=== PATIENT | male | born 1985 | race African-American/Black ===

== ENCOUNTER 2017-09-04 14:51 | Inpatient (IN) | payer MEDICAID ==
[~2017-09-04] VITALS: Ht 177.8 cm; Wt 66.2 kg
[2017-09-04] MEDS ORDERED: QUET100T PO (15:04)
[2017-09-04 15:34] LABS: EOSINOPHILS % (AUTO) 0.7 % (1.0-6.0); HEMATOCRIT 42.5 % (41-53); HEMOGLOBIN 14.6 g/dL (13.5-17.5); LYMPHOCYTES # (AUTO) 1.3 K/uL (1.0-4.8); LYMPHOCYTES % (AUTO) 25.4 % (22.0-44.0); MEAN CORPUSCULAR HEMOGLOBIN 29.9 pg (26.0-34.0); MEAN CORPUSCULAR HGB CONC 34.4 G/dL (31.0-37.0); MEAN CORPUSCULAR VOLUME 87 fL (80-100); MONOCYTES # (AUTO) 0.3 K/uL (0.1-1.0); MONOCYTES % (AUTO) 6.9 % (2.0-9.0); NEUTROPHILS # (AUTO) 3.3 K/uL (1.8-7.7); PLATELET COUNT (AUTO) 178 K/uL (150-450); RED BLOOD CELL COUNT(AUTO) 4.89 MIL/uL (4.50-5.90); RED CELL DISTRIBUTION WIDTH 12.6 % (11.5-14.5)
[2017-09-04 15:45] LABS: ANION GAP 13 mmol/L (8-16); CALCIUM, TOTAL 9.2 mg/dL (8.8-10.5); CARBON DIOXIDE 26 mmol/L (22-29); CHLORIDE 97 mmol/L (98-107); GLOMERULAR FILTR. RATE CALC > 60 mL/min (>60); POTASSIUM 3.7 mmol/L (3.5-5.1); SODIUM SERUM 136 mmol/L (136-145); UREA NITROGEN, BLOOD 18 mg/dL (7-18)
[2017-09-04 15:51] LABS: ALANINE AMINOTRANSFERASE 44 U/L (12-78); ALBUMIN 4.9 g/dL (3.4-5.0); ASPARTATE AMINOTRANSFERASE 71 U/L (15-37); BILIRUBIN,TOTAL 1.4 mg/dL (0.1-1.0); TOTAL PROTEIN, SERUM 8.3 g/dL (6.4-8.2)
[2017-09-04] MEDS ORDERED: LORazepam 2 MG/ML VIAL ONE (16:21)
[2017-09-04] MEDS ORDERED: HALOPERIDOL LACTATE 5 MG/ML VIAL ONE (16:22)
[2017-09-04] MEDS ORDERED: DiphenhydrAMINE HCL 50 MG/ML VIAL ONE (16:22)
[2017-09-04] MEDS ORDERED: HALOPERIDOL LACTATE 5 MG/ML VIAL IM ONE (16:30)
[2017-09-04] MEDS ORDERED: LORazepam 2 MG/ML VIAL IM ONE (16:30)
[2017-09-04] MEDS ORDERED: DiphenhydrAMINE HCL 50 MG/ML VIAL IM ONE (16:30)
[2017-09-04] MEDS ORDERED: INFLUENZA VIRUS VACCINE QVS 2017-18 (3YR+)/PF 60 MCG/0.5 ML SYRINGE IM ONE (20:15)
[2017-09-05] MEDS ORDERED: BENZOCAINE/MENTHOL LOZENGE MM PRN (08:00)
[2017-09-05] MEDS ORDERED: BACITRACIN 28.4 GM OINTMENT TP PRN (08:00)
[2017-09-05] MEDS ORDERED: PETROLATUM,WHITE 71 GM JELLY TP PRN (08:00)
[2017-09-05] MEDS ORDERED: MAGNESIUM HYDROXIDE SUSPENSION 30 ML UDCUP PO PRN (08:00)
[2017-09-05] MEDS ORDERED: MAG HYDROX/AL HYDROX/SIMETH ES 30 ML SUSPENSION UDCUP PO PRN (08:00)
[2017-09-05] MEDS ORDERED: IBUPROFEN 600 MG TABLET PO PRN (08:00)
[2017-09-05] MEDS ORDERED: CloNIDine HCL 0.1 MG TABLET PO PRN (08:00)
[2017-09-05] MEDS ORDERED: LOPERAMIDE HCL 2 MG CAPSULE PO PRN (08:00)
[2017-09-05] MEDS ORDERED: ONDANSETRON HCL 4 MG TABLET PO PRN (08:00)
[2017-09-05] MEDS ORDERED: ALBUTEROL SULFATE HFA 90 MCG/PUFF 8 GM INHALER IH PRN (08:00)
[2017-09-05] MEDS ORDERED: ACETAMINOPHEN 325 MG TABLET PO PRN (08:00)
[2017-09-05 08:29] VITALS: BP 117/82
[2017-09-05] MEDS: QUEtiapine FUMARATE 25 MG TABLET PO SCH (17:29)
[2017-09-05] MEDS: ZOLPIDEM TARTRATE 10 MG TABLET PO PRN (20:22)
[2017-09-06 01:07] VITALS: BP 100/65
[2017-09-06 08:19] VITALS: BP 98/63
[2017-09-06] MEDS: LORazepam 2 MG TABLET PO PRN (09:06)
[2017-09-06] MEDS: QUEtiapine FUMARATE 25 MG TABLET PO SCH ×2 (09:06→17:06)
[2017-09-06] MEDS: HALOPERIDOL 5 MG TABLET PO PRN (09:06)
[2017-09-06 16:09] VITALS: BP 115/69
[2017-09-06] MEDS: ZOLPIDEM TARTRATE 10 MG TABLET PO PRN (21:16)
[2017-09-07 08:11] VITALS: BP 126/76
[2017-09-07 08:26] LABS: CHOL/HDL RATIO 1.8 (4.2-7.3)
[2017-09-07] MEDS: QUEtiapine FUMARATE 25 MG TABLET PO SCH (09:07)
[2017-09-07] MEDS: LORazepam 2 MG TABLET PO PRN ×2 (09:07→14:05)
[2017-09-07] MEDS: HALOPERIDOL 5 MG TABLET PO PRN (14:05)
[2017-09-07 16:00] VITALS: BP 116/68
[2017-09-07] MEDS ORDERED: QUEtiapine FUMARATE 25 MG TABLET PO SCH (21:00)
[2017-09-08 06:35] VITALS: BP 116/75
[2017-09-08 08:07] LABS: HEPATITIS Bs ANTIGEN SCREEN P Negative (Negative); HEPATITIS C AB SCREEN <0.1 s/co ratio (0.0-0.9)
[2017-09-08 08:39] VITALS: BP 133/85
[2017-09-08] MEDS: LORazepam 2 MG TABLET PO PRN (08:40)
[2017-09-08] MEDS ORDERED: QUEtiapine FUMARATE 25 MG TABLET PO SCH (09:00)
[2017-09-08] MEDS ORDERED: QUET25TA PO ×2 (16:06→16:07)
[2017-09-08 16:44] VITALS: BP 135/68
== END 2017-09-08 16:45 | disposition home or self-care (01) | DRG 751 ==
LOC: EMS 14:53 → B3A 18:11
PROVIDERS: ADMIT Psychiatry & Neurology Psychiatry; ATTEND Psychiatry & Neurology Psychiatry
DX: F29 Unspecified psychosis not due to a substance or known physiological condition (principal); F41.9 Anxiety disorder, unspecified; G47.00 Insomnia, unspecified; K59.00 Constipation, unspecified; R03.0 Elevated blood-pressure reading, without diagnosis of hypertension; Z71.41 Alcohol abuse counseling and surveillance of alcoholic; Z72.89 Other problems related to lifestyle; Z28.21 Immunization not carried out because of patient refusal
CPT/HCPCS: 80074; 90471; 96372; 99285; G0480; J1200; J1630; J2060

== ENCOUNTER 2017-09-21 21:12 | Inpatient (IN) | payer MEDICAID ==
[~2017-09-21] VITALS: Ht 175.3 cm; Wt 70.3 kg
[~2017-09-21 21:12] MED LIST: QUET25TA PO
[2017-09-21 22:55] VITALS: BP 130/71
[2017-09-22 00:42] VITALS: BP 103/65
[2017-09-22 08:11] VITALS: BP 136/76
[2017-09-22] MEDS: LORazepam 2 MG TABLET PO PRN ×2 (08:49→20:29)
[2017-09-22] MEDS: QUEtiapine FUMARATE 25 MG TABLET PO SCH ×2 (08:49→20:29)
[2017-09-22 08:59] LABS: ALANINE AMINOTRANSFERASE 28 U/L (12-78); ALBUMIN 3.9 g/dL (3.4-5.0); ANION GAP 4 mmol/L (8-16); ASPARTATE AMINOTRANSFERASE 21 U/L (15-37); BILIRUBIN,TOTAL 0.3 mg/dL (0.1-1.0); CALCIUM, TOTAL 8.9 mg/dL (8.8-10.5); CARBON DIOXIDE 32 mmol/L (22-29); CHLORIDE 106 mmol/L (98-107); CHOL/HDL RATIO 2.2 (4.2-7.3); CREATININE 1.22 mg/dL (0.60-1.30); GLOMERULAR FILTR. RATE CALC > 60 mL/min (>60); POTASSIUM 4.3 mmol/L (3.5-5.1); SODIUM SERUM 142 mmol/L (136-145); THYROID STIMULATING HORMONE 0.66 uIU/mL (0.36-3.74); TOTAL PROTEIN, SERUM 6.9 g/dL (6.4-8.2); UREA NITROGEN, BLOOD 19 mg/dL (7-18)
[2017-09-22 09:01] LABS: APPEARANCE,URINE CLEAR (CLEAR); GLUCOSE, URINE (UA) NEGATIVE (NEGATIVE); KETONES,URINE NEGATIVE (NEGATIVE); LEUKOCYTE ESTERASE ,URINE NEGATIVE (NEGATIVE); OCCULT BLOOD,URINE NEGATIVE (NEGATIVE); PROTEIN,URINE NEGATIVE (NEGATIVE)
[2017-09-22 09:50] LABS: ADD UA MICROSCOPIC NO
[2017-09-22 16:00] VITALS: BP 114/67
[2017-09-22] MEDS ORDERED: QUEtiapine FUMARATE 25 MG TABLET PO SCH (21:00)
[2017-09-23 06:30] VITALS: BP 138/82
[2017-09-23] MEDS: HALOPERIDOL 5 MG TABLET PO PRN ×2 (06:46→16:49)
[2017-09-23] MEDS: LORazepam 2 MG TABLET PO PRN ×2 (06:46→16:49)
[2017-09-23 08:09] VITALS: BP 132/70
[2017-09-23] MEDS: QUEtiapine FUMARATE 25 MG TABLET PO SCH ×2 (08:37→20:24)
[2017-09-23] MEDS ORDERED: QUEtiapine FUMARATE 25 MG TABLET PO SCH (09:00)
[2017-09-23 16:00] VITALS: BP 123/70
[2017-09-23] MEDS: ZOLPIDEM TARTRATE 10 MG TABLET PO PRN (20:24)
[2017-09-24 00:50] VITALS: BP 114/67
[2017-09-24 08:09] VITALS: BP 131/64
[2017-09-24 08:38] LABS: BASOPHILS % (AUTO) 0.7 % (0.0-2.0); EOSINOPHILS % (AUTO) 8.4 % (1.0-6.0); HEMATOCRIT 44.9 % (41-53); HEMOGLOBIN 15.4 g/dL (13.5-17.5); LYMPHOCYTES # (AUTO) 1.1 K/uL (1.0-4.8); LYMPHOCYTES % (AUTO) 31.3 % (22.0-44.0); MEAN CORPUSCULAR HEMOGLOBIN 30.2 pg (26.0-34.0); MEAN CORPUSCULAR HGB CONC 34.3 G/dL (31.0-37.0); MEAN CORPUSCULAR VOLUME 88 fL (80-100); MONOCYTES # (AUTO) 0.2 K/uL (0.1-1.0); NEUTROPHILS % (AUTO) 53.6 % (40.0-70.0); PLATELET COUNT (AUTO) 179 K/uL (150-450); RED CELL DISTRIBUTION WIDTH 13.1 % (11.5-14.5); WHITE BLOOD COUNT (AUTO) 3.6 K/uL (4.5-11.0)
[2017-09-24] MEDS: QUEtiapine FUMARATE 25 MG TABLET PO SCH ×2 (08:59→20:46)
[2017-09-24] MEDS: LORazepam 2 MG TABLET PO PRN ×3 (08:59→20:46)
[2017-09-24 16:34] VITALS: BP 119/65
[2017-09-24] MEDS: HALOPERIDOL 5 MG TABLET PO PRN (16:39)
[2017-09-24] MEDS: ZOLPIDEM TARTRATE 10 MG TABLET PO PRN (20:46)
[2017-09-25 06:19] VITALS: BP 116/71
[2017-09-25 08:34] VITALS: BP 114/72
[2017-09-25] MEDS ORDERED: HALOPERIDOL LACTATE 5 MG/ML VIAL IM ONE (09:15)
[2017-09-25] MEDS ORDERED: DiphenhydrAMINE HCL 50 MG/ML VIAL IM ONE (09:15)
[2017-09-25] MEDS ORDERED: LORazepam 2 MG/ML VIAL IM ONE (09:15)
[2017-09-25 09:23] LABS: HEMATOCRIT 46.8 % (41-53); HEMOGLOBIN 15.5 g/dL (13.5-17.5); MEAN CORPUSCULAR HEMOGLOBIN 29.4 pg (26.0-34.0); MEAN CORPUSCULAR HGB CONC 33.1 G/dL (31.0-37.0); MEAN CORPUSCULAR VOLUME 89 fL (80-100); PLATELET COUNT (AUTO) 174 K/uL (150-450); RED BLOOD CELL COUNT(AUTO) 5.27 MIL/uL (4.50-5.90); RED CELL DISTRIBUTION WIDTH 13.1 % (11.5-14.5); WHITE BLOOD COUNT (AUTO) 3.9 K/uL (4.5-11.0)
[2017-09-25 09:27] LABS: ANION GAP 3 mmol/L (8-16); CALCIUM, TOTAL 9.2 mg/dL (8.8-10.5); CARBON DIOXIDE 31 mmol/L (22-29); CHLORIDE 101 mmol/L (98-107); CREATININE 1.05 mg/dL (0.60-1.30); GLOMERULAR FILTR. RATE CALC > 60 mL/min (>60); PHOSPHORUS 3.7 mg/dL (2.5-4.9); POTASSIUM 4.7 mmol/L (3.5-5.1); SODIUM SERUM 135 mmol/L (136-145); UREA NITROGEN, BLOOD 19 mg/dL (7-18)
[2017-09-25] MEDS: QUEtiapine FUMARATE 25 MG TABLET PO SCH ×2 (09:41→20:17)
[2017-09-25 10:54] LABS: BASOPHILS % (MANUAL) 1 % (0-2); EOSINOPHILS % (MANUAL) 7 % (1-6); LYMPHOCYTES % (MANUAL) 35 % (22-44); TOTAL CELLS COUNTED 100
[2017-09-25 16:00] VITALS: BP 131/70
[2017-09-25] MEDS: LORazepam 2 MG TABLET PO PRN (17:22)
[2017-09-25] MEDS: ZOLPIDEM TARTRATE 10 MG TABLET PO PRN (20:25)
[2017-09-26 05:56] VITALS: BP 125/76
[2017-09-26 08:13] VITALS: BP 135/76
[2017-09-26] MEDS: LORazepam 2 MG TABLET PO PRN ×2 (08:41→16:12)
[2017-09-26] MEDS: QUEtiapine FUMARATE 25 MG TABLET PO SCH ×2 (08:41→20:24)
[2017-09-26] MEDS: HALOPERIDOL 5 MG TABLET PO PRN ×2 (08:41→16:12)
[2017-09-26 16:00] VITALS: BP 123/68
[2017-09-27 00:44] VITALS: BP 105/67
[2017-09-27] MEDS: LORazepam 2 MG TABLET PO PRN ×2 (05:12→16:40)
[2017-09-27] MEDS: HALOPERIDOL 5 MG TABLET PO PRN ×2 (05:12→16:40)
[2017-09-27 08:16] VITALS: BP 132/86
[2017-09-27] MEDS: QUEtiapine FUMARATE 25 MG TABLET PO SCH ×2 (09:11→20:48)
[2017-09-27] MEDS: SODIUM CHLORIDE 1 GM TABLET PO SCH ×3 (09:11→16:40)
[2017-09-27 16:00] VITALS: BP 117/72
[2017-09-27] MEDS: ZOLPIDEM TARTRATE 10 MG TABLET PO PRN (20:48)
[2017-09-28 01:30] VITALS: BP 125/74
[2017-09-28 08:37] VITALS: BP 125/72
[2017-09-28] MEDS: SODIUM CHLORIDE 1 GM TABLET PO SCH ×3 (09:25→16:16)
[2017-09-28] MEDS: QUEtiapine FUMARATE 25 MG TABLET PO SCH ×2 (09:25→20:29)
[2017-09-28] MEDS: LORazepam 2 MG TABLET PO PRN ×2 (09:25→16:16)
[2017-09-28 16:00] VITALS: BP 128/76
[2017-09-28] MEDS: HALOPERIDOL 5 MG TABLET PO PRN (16:16)
[2017-09-29 02:16] VITALS: BP 131/82
[2017-09-29 08:48] VITALS: BP 114/59
[2017-09-29 09:16] LABS: POTASSIUM 4.4 mmol/L (3.5-5.1)
[2017-09-29] MEDS: QUEtiapine FUMARATE 25 MG TABLET PO SCH ×2 (09:34→20:14)
[2017-09-29] MEDS: LORazepam 2 MG TABLET PO PRN ×2 (09:34→19:27)
[2017-09-29 16:26] VITALS: BP 116/76
[2017-09-29] MEDS: HALOPERIDOL 5 MG TABLET PO PRN (19:27)
[2017-09-29] MEDS: ZOLPIDEM TARTRATE 10 MG TABLET PO PRN (20:14)
[2017-09-30 04:38] VITALS: BP 116/65
[2017-09-30 07:52] LABS: HEMATOCRIT 44.3 % (41-53); HEMOGLOBIN 15.3 g/dL (13.5-17.5); MEAN CORPUSCULAR HEMOGLOBIN 29.9 pg (26.0-34.0); MEAN CORPUSCULAR HGB CONC 34.4 G/dL (31.0-37.0); MEAN CORPUSCULAR VOLUME 87 fL (80-100); RED CELL DISTRIBUTION WIDTH 12.8 % (11.5-14.5); WHITE BLOOD COUNT (AUTO) 4.1 K/uL (4.5-11.0)
[2017-09-30 08:06] LABS: ANION GAP 4 mmol/L (8-16); CALCIUM, TOTAL 9.1 mg/dL (8.8-10.5); CARBON DIOXIDE 32 mmol/L (22-29); CHLORIDE 101 mmol/L (98-107); CREATININE 1.13 mg/dL (0.60-1.30); GLOMERULAR FILTR. RATE CALC > 60 mL/min (>60); PHOSPHORUS 3.9 mg/dL (2.5-4.9); POTASSIUM 4.5 mmol/L (3.5-5.1); SODIUM SERUM 137 mmol/L (136-145); UREA NITROGEN, BLOOD 19 mg/dL (7-18)
[2017-09-30 08:14] VITALS: BP 110/62
[2017-09-30] MEDS: QUEtiapine FUMARATE 25 MG TABLET PO SCH (08:53)
[2017-09-30 09:14] LABS: PLATELET COUNT (AUTO) 177 K/uL (150-450)
[2017-09-30 09:16] LABS: BAND NEUTROPHILS % (MANUAL) 7 % (1-5); LYMPHOCYTES % (MANUAL) 45 % (22-44); TOTAL CELLS COUNTED 100
[2017-09-30 09:17] LABS: RBC MORPHOLOGY COMMENT NORMAL RBC MORPH
== END 2017-09-30 12:00 | disposition home or self-care (01) | DRG 751 ==
LOC: B3A 21:45 → EDSTATUS 22:30
PROVIDERS: ADMIT Psychiatry & Neurology Psychiatry; ATTEND Psychiatry & Neurology Psychiatry
DX: F29 Unspecified psychosis not due to a substance or known physiological condition (principal); E87.1 Hypo-osmolality and hyponatremia; R45.850 Homicidal ideations; F22 Delusional disorders; F31.9 Bipolar disorder, unspecified; F10.10 Alcohol abuse, uncomplicated; F12.90 Cannabis use, unspecified, uncomplicated; F41.9 Anxiety disorder, unspecified; K59.00 Constipation, unspecified; G47.00 Insomnia, unspecified; Z71.41 Alcohol abuse counseling and surveillance of alcoholic; Z71.51 Drug abuse counseling and surveillance of drug abuser
CPT/HCPCS: 80307; 83036; 83735; 84100; 84132; 84295; 84439; 84443; 84520; 85007; 87081; 99285; J1200; J1630; J2060

== ENCOUNTER 2018-03-30 09:13 | Inpatient (IN) | payer MEDICAID ==
[2018-03-30 09:32] VITALS: BP 150/81
[2018-03-30] MEDS ORDERED: LORazepam 2 MG/ML VIAL IM ONE (10:00)
[2018-03-30] MEDS ORDERED: HALOPERIDOL 5 MG TABLET PO PRN (10:00)
[2018-03-30] MEDS ORDERED: ZOLPIDEM TARTRATE 10 MG TABLET PO PRN (10:00)
[2018-03-30] MEDS ORDERED: HALOPERIDOL LACTATE 5 MG/ML VIAL IM ONE (10:00)
[2018-03-30] MEDS ORDERED: DiphenhydrAMINE HCL 50 MG/ML VIAL IM ONE (10:00)
[2018-03-30] MEDS ORDERED: LORazepam 2 MG/ML VIAL ONE (10:09)
[2018-03-30] MEDS ORDERED: HALOPERIDOL LACTATE 5 MG/ML VIAL ONE (10:10)
[2018-03-30] MEDS ORDERED: DiphenhydrAMINE HCL 50 MG/ML VIAL ONE (10:10)
[2018-03-30 10:30] VITALS: BP 128/84
[2018-03-30 10:56] VITALS: BP 149/97
[2018-03-30 19:05] VITALS: BP 118/78
[2018-03-30] MEDS ORDERED: IBUPROFEN 600 MG TABLET PO PRN (19:30)
[2018-03-31 01:13] VITALS: BP 126/84
[2018-03-31 08:09] VITALS: BP 135/70
[2018-03-31] MEDS ORDERED: ALBUTEROL SULFATE HFA 90 MCG/PUFF 8 GM INHALER IH PRN (08:45)
[2018-03-31] MEDS ORDERED: CloNIDine HCL 0.1 MG TABLET PO PRN (08:45)
[2018-03-31] MEDS ORDERED: MAGNESIUM HYDROXIDE SUSPENSION 30 ML UDCUP PO PRN (08:45)
[2018-03-31] MEDS ORDERED: LOPERAMIDE HCL 2 MG CAPSULE PO PRN (08:45)
[2018-03-31] MEDS ORDERED: BACITRACIN 28.4 GM OINTMENT TP PRN (08:45)
[2018-03-31] MEDS ORDERED: PETROLATUM,WHITE 71 GM JELLY TP PRN (08:45)
[2018-03-31] MEDS ORDERED: ACETAMINOPHEN 325 MG TABLET PO PRN (08:45)
[2018-03-31] MEDS ORDERED: MAG HYDROX/AL HYDROX/SIMETH ES 30 ML SUSPENSION UDCUP PO PRN (08:45)
[2018-03-31] MEDS ORDERED: ONDANSETRON HCL 4 MG TABLET PO PRN (08:45)
[2018-03-31] MEDS ORDERED: BENZOCAINE/MENTHOL LOZENGE MM PRN (08:45)
[2018-03-31 16:36] VITALS: BP 110/75
[2018-03-31 17:15] VITALS: BP 125/79
[2018-03-31] MEDS: LORazepam 2 MG TABLET PO PRN (17:17)
[2018-03-31] MEDS: QUEtiapine FUMARATE 25 MG TABLET PO SCH (20:50)
[2018-04-01 05:42] VITALS: BP 122/82
[2018-04-01 07:54] LABS: BASOPHILS % (AUTO) 0.9 % (0.0-2.0); EOSINOPHILS % (AUTO) 4.4 % (1.0-6.0); HEMATOCRIT 42.8 % (41-53); HEMOGLOBIN 14.7 g/dL (13.5-17.5); LYMPHOCYTES # (AUTO) 1.4 K/uL (1.0-4.8); LYMPHOCYTES % (AUTO) 28.4 % (22.0-44.0); MEAN CORPUSCULAR HEMOGLOBIN 29.3 pg (26.0-34.0); MEAN CORPUSCULAR HGB CONC 34.4 G/dL (31.0-37.0); MEAN CORPUSCULAR VOLUME 85 fL (80-100); MONOCYTES # (AUTO) 0.3 K/uL (0.1-1.0); MONOCYTES % (AUTO) 6.1 % (2.0-9.0); NEUTROPHILS # (AUTO) 2.9 K/uL (1.8-7.7); NEUTROPHILS % (AUTO) 60.2 % (40.0-70.0); PLATELET COUNT (AUTO) 181 K/uL (150-450); RED BLOOD CELL COUNT(AUTO) 5.02 MIL/uL (4.50-5.90); RED CELL DISTRIBUTION WIDTH 12.5 % (11.5-14.5)
[2018-04-01 08:17] LABS: HEMOGLOBIN A1C 4.8 % (4.5-6.2)
[2018-04-01 08:25] VITALS: BP 113/62
[2018-04-01 08:27] LABS: ALANINE AMINOTRANSFERASE 41 U/L (12-78); ALBUMIN 4.3 g/dL (3.4-5.0); ALKALINE PHOSPHATASE 70 U/L (46-116); ANION GAP 8 mmol/L (8-16); ASPARTATE AMINOTRANSFERASE 52 U/L (15-37); CALCIUM, TOTAL 8.7 mg/dL (8.8-10.5); CARBON DIOXIDE 29 mmol/L (22-29); CHLORIDE 100 mmol/L (98-107); CHOLESTEROL 118 mg/dL (131-200); CREATININE 1.09 mg/dL (0.60-1.30); FREE T4 (FREE THYROXINE) 0.97 ng/dL (0.76-1.46); GLOMERULAR FILTR. RATE CALC > 60 mL/min (>60); GLUCOSE,RANDOM 106 mg/dL (70-110); HDL CHOLESTEROL 58 mg/dL (40-60); LDL CHOL (CALC.) 44 mg/dL (0-130); POTASSIUM 3.8 mmol/L (3.5-5.1); SODIUM SERUM 137 mmol/L (136-145); THYROID STIMULATING HORMONE 2.11 uIU/mL (0.36-3.74); TOTAL PROTEIN, SERUM 8.4 g/dL (6.4-8.2); TRIGLYCERIDES 78 mg/dL (15-150); UREA NITROGEN, BLOOD 20 mg/dL (7-18)
[2018-04-01 08:39] LABS: BILIRUBIN,TOTAL 0.3 mg/dL (0.1-1.0)
[2018-04-01] MEDS: LORazepam 2 MG TABLET PO PRN ×2 (09:14→20:03)
[2018-04-01] MEDS: QUEtiapine FUMARATE 25 MG TABLET PO SCH ×2 (09:14→20:03)
[2018-04-01 16:18] VITALS: BP 121/70
[2018-04-02 05:18] VITALS: BP 119/79
[2018-04-02 08:14] VITALS: BP 107/66
[2018-04-02] MEDS: LORazepam 2 MG TABLET PO PRN ×2 (08:59→16:29)
[2018-04-02] MEDS: QUEtiapine FUMARATE 25 MG TABLET PO SCH ×2 (08:59→20:45)
[2018-04-02 16:00] VITALS: BP 110/68
[2018-04-03 05:21] VITALS: BP 122/70
[2018-04-03] MEDS: QUEtiapine FUMARATE 25 MG TABLET PO SCH (08:12)
[2018-04-03 08:24] VITALS: BP 118/82
== END 2018-04-03 11:00 | disposition home or self-care (01) | DRG 753 ==
LOC: EDSTATUS 09:13 → B3A 10:04 → EDSTATUS 10:32
PROVIDERS: ADMIT Psychiatry & Neurology Psychiatry; ATTEND Psychiatry & Neurology Psychiatry
DX: F31.2 Bipolar disorder, current episode manic severe with psychotic features (principal); F41.9 Anxiety disorder, unspecified; F12.10 Cannabis abuse, uncomplicated; G47.00 Insomnia, unspecified; K21.9 Gastro-esophageal reflux disease without esophagitis; K59.00 Constipation, unspecified
CPT/HCPCS: 82306; 83036; 84439; 84443; J1200; J1630; J2060

== ENCOUNTER 2018-03-30 12:09 | Emergency (ER) | payer MEDICAID ==
[~2018-03-30] VITALS: Ht 182.9 cm; Wt 77.3 kg
[2018-03-30] MEDS: IBUPROFEN 800 MG TABLET PO ONE (15:54)
[2018-03-30 17:25] VITALS: BP 120/79
== END 2018-03-30 17:42 | disposition home or self-care (01) ==
LOC: EMS 12:10
DX: S93.401A Sprain of unspecified ligament of right ankle, initial encounter (principal); X58.XXXA Exposure to other specified factors, initial encounter; Y93.89 Activity, other specified; Y92.89 Other specified places as the place of occurrence of the external cause; Y99.8 Other external cause status
CPT/HCPCS: 99284

== ENCOUNTER 2021-03-09 22:44 | Emergency (ER) | payer OTHER, MEDICAID ==
[~2021-03-09] VITALS: Ht 175.3 cm; Wt 68.2 kg
[2021-03-09] MEDS ORDERED: HALOPERIDOL LACTATE 5 MG/ML VIAL IM ONE (23:00)
[2021-03-09] MEDS ORDERED: LORazepam 2 MG/ML VIAL IM ONE (23:00)
[2021-03-10 00:04] LABS: BASOPHILS % (AUTO) 0.9 % (0.0-2.0); EOSINOPHILS % (AUTO) 0.3 % (1.0-6.0); HEMOGLOBIN 13.7 g/dL (13.5-17.5); LYMPHOCYTES # (AUTO) 1.1 K/uL (1.0-4.8); LYMPHOCYTES % (AUTO) 17.1 % (22.0-44.0); MEAN CORPUSCULAR HEMOGLOBIN 29.5 pg (26.0-34.0); MEAN CORPUSCULAR HGB CONC 34.2 G/dL (31.0-37.0); MEAN CORPUSCULAR VOLUME 86 fL (80-100); MONOCYTES # (AUTO) 0.3 K/uL (0.1-1.0); MONOCYTES % (AUTO) 5.1 % (2.0-9.0); NEUTROPHILS # (AUTO) 4.9 K/uL (1.8-7.7); NEUTROPHILS % (AUTO) 76.6 % (40.0-70.0); PLATELET COUNT (AUTO) 177 K/uL (150-450); RED BLOOD CELL COUNT(AUTO) 4.63 MIL/uL (4.50-5.90); RED CELL DISTRIBUTION WIDTH 12.7 % (11.5-14.5)
[2021-03-10 00:14] LABS: ANION GAP 14 mmol/L (8-16); CARBON DIOXIDE 26 mmol/L (22-29); CHLORIDE 101 mmol/L (98-107); CREATININE 1.55 mg/dL (0.60-1.30); GLOMERULAR FILTR. RATE CALC > 60 mL/min (>60); GLUCOSE,RANDOM 79 mg/dL (70-110); POTASSIUM 3.8 mmol/L (3.5-5.1); SODIUM SERUM 141 mmol/L (136-145); UREA NITROGEN, BLOOD 26 mg/dL (7-18)
[2021-03-10 00:20] LABS: ALANINE AMINOTRANSFERASE 41 U/L (12-78); ALBUMIN 4.8 g/dL (3.4-5.0); ALKALINE PHOSPHATASE 70 U/L (46-116); ASPARTATE AMINOTRANSFERASE 65 U/L (15-37); BILIRUBIN,TOTAL 1.3 mg/dL (0.1-1.0); TOTAL PROTEIN, SERUM 8.1 g/dL (6.4-8.2)
[2021-03-10 01:03] LABS: COVID AG,FIA SOURCE NASOPHARYNGEAL
[2021-03-10] MEDS ORDERED: SODIUM CHLORIDE 0.9% 2,200 ML IV ONE (02:15)
[2021-03-10 02:41] VITALS: BP 114/57
[2021-03-10 02:54] LABS: SALICYLATE 1.6 mg/dL (2.8-20.0)
[2021-03-10 02:58] LABS: ACETAMINOPHEN < 2 mcg/mL (10-30)
== END 2021-03-10 04:58 | disposition short-term general hospital (02) ==
LOC: EMS 22:48
DX: N17.9 Acute kidney failure, unspecified (principal); M62.82 Rhabdomyolysis; F20.9 Schizophrenia, unspecified; Z20.822 Contact with and (suspected) exposure to COVID-19
CPT/HCPCS: 36415; 80053; 82550; 85025; 87426; 96360; 96361; 96372; 99291; G0480; J1630; J2060; J7030; G0481

== ENCOUNTER 2021-07-19 07:00 | Inpatient (IN) | payer OTHER, MEDICAID ==
[~2021-07-19] VITALS: Ht 177.8 cm; Wt 72.0 kg
[2021-07-19 08:11] LABS: BASOPHILS % (AUTO) 0.6 % (0.0-2.0); EOSINOPHILS % (AUTO) 0.5 % (1.0-6.0); HEMATOCRIT 43.8 % (41-53); HEMOGLOBIN 14.7 g/dL (13.5-17.5); LYMPHOCYTES # (AUTO) 0.7 K/uL (1.0-4.8); LYMPHOCYTES % (AUTO) 11.7 % (22.0-44.0); MEAN CORPUSCULAR HEMOGLOBIN 29.7 pg (26.0-34.0); MEAN CORPUSCULAR HGB CONC 33.6 G/dL (31.0-37.0); MEAN CORPUSCULAR VOLUME 88 fL (80-100); MONOCYTES # (AUTO) 0.3 K/uL (0.1-1.0); MONOCYTES % (AUTO) 4.6 % (2.0-9.0); NEUTROPHILS # (AUTO) 5.2 K/uL (1.8-7.7); NEUTROPHILS % (AUTO) 82.6 % (40.0-70.0); PLATELET COUNT (AUTO) 187 K/uL (150-450); RED BLOOD CELL COUNT(AUTO) 4.96 MIL/uL (4.50-5.90); RED CELL DISTRIBUTION WIDTH 13.6 % (11.5-14.5)
[2021-07-19 08:18] LABS: ANION GAP 11 mmol/L (8-16); CALCIUM, TOTAL 8.8 mg/dL (8.8-10.5); CARBON DIOXIDE 27 mmol/L (22-29); CHLORIDE 106 mmol/L (98-107); CREATININE 1.28 mg/dL (0.60-1.30); GLOMERULAR FILTR. RATE CALC > 60 mL/min (>60); GLUCOSE,RANDOM 103 mg/dL (70-110); POTASSIUM 3.4 mmol/L (3.5-5.1); SODIUM SERUM 144 mmol/L (136-145); UREA NITROGEN, BLOOD 18 mg/dL (7-18)
[2021-07-19 08:22] LABS: SALICYLATE 2.5 mg/dL (2.8-20.0)
[2021-07-19 08:25] LABS: ACETAMINOPHEN < 2 mcg/mL (10-30)
[2021-07-19 08:36] LABS: ALANINE AMINOTRANSFERASE 34 U/L (12-78); ALBUMIN 4.3 g/dL (3.4-5.0); ALKALINE PHOSPHATASE 63 U/L (46-116); ASPARTATE AMINOTRANSFERASE 40 U/L (15-37); BILIRUBIN,TOTAL 0.8 mg/dL (0.1-1.0); TOTAL PROTEIN, SERUM 8.4 g/dL (6.4-8.2)
[2021-07-19] MEDS ORDERED: DiphenhydrAMINE HCL 50 MG/ML VIAL IM ONE ×2 (11:00→16:45)
[2021-07-19] MEDS ORDERED: HALOPERIDOL LACTATE 5 MG/ML VIAL IM ONE ×3 (11:00→16:45)
[2021-07-19 11:45] LABS: COVID AG,FIA SOURCE NASOPHARYNGEAL
[2021-07-19] MEDS ORDERED: LORazepam 2 MG TABLET PO ONE (11:45)
[2021-07-19] MEDS ORDERED: LORazepam 2 MG/ML VIAL IM ONE ×2 (13:00→16:45)
[2021-07-19 20:23] VITALS: BP 122/68
[2021-07-19] MEDS ORDERED: POTASSIUM CHLORIDE 20 MEQ ER TABLET PO ONE (23:15)
[2021-07-20] MEDS ORDERED: CloNIDine HCL 0.1 MG TABLET PO PRN (08:00)
[2021-07-20] MEDS ORDERED: GuaiFENesin/D-METHORPHAN [SUGAR-FREE] 200-20MG/10 ML SYRUP UDCUP PO PRN (08:00)
[2021-07-20] MEDS ORDERED: PETROLATUM,WHITE 28 GM JELLY TP PRN (08:00)
[2021-07-20] MEDS ORDERED: LOPERAMIDE HCL 2 MG CAPSULE PO PRN (08:00)
[2021-07-20] MEDS ORDERED: ALBUTEROL SULFATE HFA 90 MCG/PUFF 8 GM INHALER IH PRN (08:00)
[2021-07-20] MEDS ORDERED: ONDANSETRON HCL 4 MG TABLET PO PRN (08:00)
[2021-07-20] MEDS ORDERED: MAG HYDROX/AL HYDROX/SIMETH ES 30 ML SUSPENSION UDCUP PO PRN (08:00)
[2021-07-20] MEDS ORDERED: NICOTINE 14 MG/24 HOUR PATCH TD PRN (08:00)
[2021-07-20] MEDS ORDERED: MAGNESIUM HYDROXIDE SUSPENSION 30 ML UDCUP PO PRN (08:00)
[2021-07-20] MEDS ORDERED: ACETAMINOPHEN 325 MG TABLET PO PRN (08:00)
[2021-07-20] MEDS ORDERED: DOCUSATE SODIUM 100 MG CAPSULE PO PRN (08:00)
[2021-07-20] MEDS ORDERED: IBUPROFEN 400 MG TABLET PO PRN (08:00)
[2021-07-20 08:52] VITALS: BP 144/74
[2021-07-20] MEDS: QUEtiapine FUMARATE 100 MG TABLET PO SCH ×2 (12:30→20:20)
[2021-07-20 17:28] VITALS: BP 117/67
[2021-07-21 08:00] VITALS: BP 106/58
[2021-07-21] MEDS: QUEtiapine FUMARATE 100 MG TABLET PO SCH ×2 (08:35→20:38)
[2021-07-21 08:54] LABS: CHOL/HDL RATIO 2.7 (4.2-7.3); FREE T4 (FREE THYROXINE) 1.03 ng/dL (0.76-1.46); THYROID STIMULATING HORMONE 0.89 uIU/mL (0.36-3.74)
[2021-07-21 16:59] VITALS: BP 121/81
[2021-07-22] MEDS: QUEtiapine FUMARATE 100 MG TABLET PO SCH (08:19)
[2021-07-22 09:10] VITALS: BP 130/76
[2021-07-22] MEDS: HALOPERIDOL 5 MG TABLET PO PRN ×2 (10:39→16:43)
[2021-07-22] MEDS: LORazepam 2 MG TABLET PO PRN (10:39)
[2021-07-22] MEDS ORDERED: SODIUM POLYSTYRENE SULFONATE 15 GM/60 ML SUSPENSION BOTTLE PO ONE (14:30)
[2021-07-22 16:42] VITALS: BP 108/74
[2021-07-22] MEDS: ZOLPIDEM TARTRATE 10 MG TABLET PO PRN (20:21)
[2021-07-22] MEDS: QUEtiapine FUMARATE 200 MG TABLET PO SCH (20:21)
[2021-07-23] MEDS: LORazepam 2 MG TABLET PO PRN (08:33)
[2021-07-23] MEDS: HALOPERIDOL 5 MG TABLET PO PRN (08:33)
[2021-07-23] MEDS: QUEtiapine FUMARATE 100 MG TABLET PO SCH (08:34)
[2021-07-23 16:39] VITALS: BP 138/78
[2021-07-23] MEDS: ZOLPIDEM TARTRATE 10 MG TABLET PO PRN (20:25)
[2021-07-23] MEDS: QUEtiapine FUMARATE 200 MG TABLET PO SCH (20:27)
[2021-07-24] MEDS: LORazepam 2 MG TABLET PO PRN (06:02)
[2021-07-24] MEDS: HALOPERIDOL 5 MG TABLET PO PRN (06:02)
[2021-07-24 08:38] VITALS: BP 125/81
[2021-07-24] MEDS ORDERED: QUET25TA PO ×2 (10:03)
[2021-07-24] MEDS: QUEtiapine FUMARATE 100 MG TABLET PO SCH (10:09)
== END 2021-07-24 15:00 | disposition home or self-care (01) | DRG 885 ==
LOC: EMS 07:01 → 3EC 17:23
DX: F25.0 Schizoaffective disorder, bipolar type (principal); E87.5 Hyperkalemia; E87.6 Hypokalemia; Z79.899 Other long term (current) drug therapy; Z20.822 Contact with and (suspected) exposure to COVID-19; F10.10 Alcohol abuse, uncomplicated; Z78.1 Physical restraint status
CPT/HCPCS: 80053; 80061; 84132; 84439; 84443; 85025; 99291; G0480; G0481; J1200; J1630; J2060

== ENCOUNTER 2024-12-19 11:26 | Emergency (ER) | payer MEDICAID ==
[~2024-12-19] VITALS: Ht 177.8 cm; Wt 68.2 kg
[~2024-12-19 11:26] MED LIST changes: +QUET100T34 PO; -QUET25TA PO
[2024-12-19 11:32] VITALS: BP 135/62; PULSE 66; RESP 16; TEMP 98.2; O2SAT 99
[2024-12-19 12:21] LABS: BASOPHILS % (AUTO) 0.4 % (0.0-2.0); EOSINOPHILS % (AUTO) 0.2 % (1.0-6.0); HEMOGLOBIN 15.2 g/dL (13.5-17.5); LYMPHOCYTES # (AUTO) 0.8 K/uL (1.0-4.8); LYMPHOCYTES % (AUTO) 20.6 % (22.0-44.0); MEAN CORPUSCULAR HEMOGLOBIN 29.1 pg (26.0-34.0); MEAN CORPUSCULAR VOLUME 88 fL (80-100); MONOCYTES # (AUTO) 0.3 K/uL (0.1-1.0); MONOCYTES % (AUTO) 7.7 % (2.0-9.0); NEUTROPHILS # (AUTO) 2.7 K/uL (1.8-7.7); NEUTROPHILS % (AUTO) 71.1 % (40.0-70.0); PLATELET COUNT (AUTO) 157 K/uL (150-450); RED BLOOD CELL COUNT(AUTO) 5.22 MIL/uL (4.50-5.90); RED CELL DISTRIBUTION WIDTH 12.6 % (11.5-14.5); WHITE BLOOD COUNT (AUTO) 3.8 K/uL (4.5-11.0)
[2024-12-19 12:29] LABS: COVID AG,FIA SOURCE NASAL SWAB
[2024-12-19 12:31] LABS: ALCOHOL, BLOOD (SERUM) 26 mg/dL (0-10); ANION GAP 8 mmol/L (8-16); CALCIUM, TOTAL 8.8 mg/dL (8.8-10.5); CARBON DIOXIDE 30 mmol/L (22-29); CHLORIDE 103 mmol/L (98-107); CREATININE 1.16 mg/dL (0.60-1.30); GLOMERULAR FILTR. RATE CALC > 60 mL/min (>60); GLUCOSE,RANDOM 66 mg/dL (70-110); POTASSIUM 3.8 mmol/L (3.5-5.1); SODIUM SERUM 141 mmol/L (136-145); UREA NITROGEN, BLOOD 23 mg/dL (7-18)
[2024-12-19 12:39] LABS: ALCOHOL, URINE DRUG SCREEN NEGATIVE (NEGATIVE); AMPHET/METH SCREEN,URINE NEGATIVE (NEGATIVE); BARBITURATE SCREEN, URINE NEGATIVE (NEGATIVE); BENZODIAZEPINES SCREEN,URINE NEGATIVE (NEGATIVE); CANNABINOID SCREEN,URINE POSITIVE (NEGATIVE); COCAINE SCREEN,URINE NEGATIVE (NEGATIVE); METHADONE SCREEN, URINE NEGATIVE (NEGATIVE); OPIATE SCREEN,URINE NEGATIVE (NEGATIVE); PHENCYCLIDINE SCREEN,URINE POSITIVE (NEGATIVE)
[2024-12-19 12:40] LABS: APPEARANCE,URINE CLEAR (CLEAR); BILIRUBIN,URINE NEGATIVE (NEGATIVE); COLOR,URINE YELLOW (YELLOW); GLUCOSE, URINE (UA) NEGATIVE (NEGATIVE); KETONES,URINE TRACE mg/dL (NEGATIVE); LEUKOCYTE ESTERASE ,URINE NEGATIVE (NEGATIVE); NITRATE,URINE NEGATIVE (NEGATIVE); OCCULT BLOOD,URINE NEGATIVE (NEGATIVE); PH,URINE 5.5 (5.0-8.0); PH,URINE DRUG SCREEN 5.5 (5.0-8.0); PROTEIN,URINE 30-70 mg/dL (NEGATIVE); SPECIFIC GRAVITIY, URINE 1.033 (1.003-1.030); UROBILINOGEN,URINE <=1.0 mg/dL (<=1.0)
[2024-12-19 12:53] LABS: SARS-COV2 (COVID) ANTIGEN,FIA Negative (Negative)
== END 2024-12-19 14:04 | disposition home or self-care (01) ==
LOC: EMS 11:30
DX: F25.0 Schizoaffective disorder, bipolar type (principal); F12.10 Cannabis abuse, uncomplicated; R44.0 Auditory hallucinations; Z20.822 Contact with and (suspected) exposure to COVID-19
CPT/HCPCS: 99283; 87426; 80048; 81003; 85025; 36415; 80307; G0480

== ENCOUNTER 2024-12-20 11:02 | Inpatient (IN) | payer MEDICAID ==
[~2024-12-20] VITALS: Ht 177.8 cm; Wt 72.6 kg
[2024-12-20] MEDS: LORazepam 2 MG/ML VIAL IM ONE (11:29)
[2024-12-20] MEDS: HALOPERIDOL LACTATE 5 MG/ML VIAL IM ONE (11:30)
[2024-12-20] MEDS: DiphenhydrAMINE HCL 50 MG/ML VIAL IM ONE (11:30)
[2024-12-20 11:42] LABS: COVID AG,FIA SOURCE NASAL SWAB
[2024-12-20 11:59] LABS: SARS-COV2 (COVID) ANTIGEN,FIA Negative (Negative)
[2024-12-20 12:54] LABS: BASOPHILS % (AUTO) 0.9 % (0.0-2.0); EOSINOPHILS % (AUTO) 0.1 % (1.0-6.0); HEMATOCRIT 42.7 % (41-53); HEMOGLOBIN 14.5 g/dL (13.5-17.5); LYMPHOCYTES % (AUTO) 22.9 % (22.0-44.0); MEAN CORPUSCULAR HEMOGLOBIN 29.9 pg (26.0-34.0); MEAN CORPUSCULAR VOLUME 88 fL (80-100); MONOCYTES # (AUTO) 0.3 K/uL (0.1-1.0); MONOCYTES % (AUTO) 6.5 % (2.0-9.0); NEUTROPHILS % (AUTO) 69.6 % (40.0-70.0); PLATELET COUNT (AUTO) 119 K/uL (150-450); RED BLOOD CELL COUNT(AUTO) 4.86 MIL/uL (4.50-5.90); RED CELL DISTRIBUTION WIDTH 12.8 % (11.5-14.5); WHITE BLOOD COUNT (AUTO) 4.2 K/uL (4.5-11.0)
[2024-12-20 12:59] LABS: ANION GAP 10 mmol/L (8-16); CALCIUM, TOTAL 8.8 mg/dL (8.8-10.5); CARBON DIOXIDE 26 mmol/L (22-29); CHLORIDE 100 mmol/L (98-107); CREATININE 0.94 mg/dL (0.60-1.30); GLOMERULAR FILTR. RATE CALC > 60 mL/min (>60); GLUCOSE,RANDOM 70 mg/dL (70-110); POTASSIUM 3.9 mmol/L (3.5-5.1); SODIUM SERUM 136 mmol/L (136-145); UREA NITROGEN, BLOOD 19 mg/dL (7-18)
[2024-12-20 13:13] LABS: ALCOHOL, BLOOD (SERUM) < 3 mg/dL (0-10)
[2024-12-20 13:49] LABS: APPEARANCE,URINE CLEAR (CLEAR); BILIRUBIN,URINE NEGATIVE (NEGATIVE); COLOR,URINE LIGHT YELLOW (YELLOW); GLUCOSE, URINE (UA) NEGATIVE (NEGATIVE); LEUKOCYTE ESTERASE ,URINE NEGATIVE (NEGATIVE); NITRATE,URINE NEGATIVE (NEGATIVE); OCCULT BLOOD,URINE MODERATE (NEGATIVE); PH,URINE 5.5 (5.0-8.0); PH,URINE DRUG SCREEN 5.5 (5.0-8.0); PROTEIN,URINE NEGATIVE (NEGATIVE); SPECIFIC GRAVITIY, URINE 1.009 (1.003-1.030); UROBILINOGEN,URINE <=1.0 mg/dL (<=1.0)
[2024-12-20 13:56] LABS: ALCOHOL, URINE DRUG SCREEN NEGATIVE (NEGATIVE); AMPHET/METH SCREEN,URINE NEGATIVE (NEGATIVE); BARBITURATE SCREEN, URINE NEGATIVE (NEGATIVE); BENZODIAZEPINES SCREEN,URINE NEGATIVE (NEGATIVE); CANNABINOID SCREEN,URINE POSITIVE (NEGATIVE); COCAINE SCREEN,URINE NEGATIVE (NEGATIVE); METHADONE SCREEN, URINE NEGATIVE (NEGATIVE); OPIATE SCREEN,URINE NEGATIVE (NEGATIVE); PHENCYCLIDINE SCREEN,URINE POSITIVE (NEGATIVE)
[2024-12-20 14:00] LABS: BACTERIA,URINE None Seen /HPF (None Seen); WBC,URINE None Seen /HPF (0-5); YEAST,URINE None Seen /HPF (None Seen)
[2024-12-20 18:24] VITALS: BP 129/77; PULSE 60; RESP 18; TEMP 97.7; O2SAT 100
[2024-12-21 08:08] VITALS: BP 151/97; PULSE 84; RESP 17; TEMP 98; O2SAT 95
[2024-12-21 08:28] VITALS: BP 133/77
[2024-12-21] MEDS: HALOPERIDOL 5 MG TABLET PO PRN (09:28)
[2024-12-21] MEDS: LORazepam 2 MG TABLET PO PRN (09:28)
[2024-12-21] MEDS ORDERED: MAGNESIUM HYDROXIDE SUSPENSION 30 ML UDCUP PO PRN (09:45)
[2024-12-21] MEDS ORDERED: ONDANSETRON 4 MG TABLET PO PRN (09:45)
[2024-12-21] MEDS ORDERED: CloNIDine HCL 0.1 MG TABLET PO PRN (09:45)
[2024-12-21] MEDS ORDERED: ALBUTEROL SULFATE HFA 90 MCG/PUFF 8 GM INHALER IH PRN (09:45)
[2024-12-21] MEDS ORDERED: GuaiFENesin/D-METHORPHAN [SUGAR-FREE] 200-20MG/10 ML SYRUP UDCUP PO PRN (09:45)
[2024-12-21] MEDS ORDERED: LOPERAMIDE HCL 2 MG CAPSULE PO PRN (09:45)
[2024-12-21] MEDS ORDERED: DOCUSATE SODIUM 100 MG CAPSULE PO PRN (09:45)
[2024-12-21] MEDS ORDERED: MAG HYDROX/ALUMINUM HYD/SIMETH ES 30 ML SUSPENSION UDCUP PO PRN (09:45)
[2024-12-21] MEDS ORDERED: PETROLATUM,WHITE 28 GM JELLY TP PRN (09:45)
[2024-12-21] MEDS ORDERED: ACETAMINOPHEN 325 MG TABLET PO PRN (09:45)
[2024-12-21] MEDS ORDERED: NICOTINE 14 MG/24 HOUR PATCH TD PRN (09:45)
[2024-12-21 20:06] VITALS: BP 128/83; PULSE 87; RESP 16; TEMP 98.1; O2SAT 95
[2024-12-22 08:06] VITALS: BP 126/80; PULSE 64; RESP 17; TEMP 97.4; O2SAT 100
[2024-12-22 09:17] LABS: HEMOGLOBIN A1C 5.1 % (3.8-5.6)
[2024-12-22 09:37] LABS: CHOL/HDL RATIO 2.2 (4.2-7.3); THYROID STIMULATING HORMONE 2.19 uIU/mL (0.36-3.74)
[2024-12-22 20:04] VITALS: BP 139/76; PULSE 78; RESP 16; TEMP 97.5; O2SAT 98
[2024-12-22] MEDS: QUEtiapine FUMARATE 100 MG TABLET PO SCH (20:22)
[2024-12-23] MEDS: QUEtiapine FUMARATE 25 MG TABLET PO SCH (08:21)
[2024-12-23 08:37] VITALS: BP 128/74; PULSE 66; RESP 18; TEMP 97.6; O2SAT 99
[2024-12-23 20:37] VITALS: BP 114/72; PULSE 65; RESP 18; TEMP 97.7; O2SAT 99
[2024-12-23] MEDS: ZOLPIDEM TARTRATE 10 MG TABLET PO PRN (20:59)
[2024-12-24 08:29] VITALS: BP 143/80; PULSE 60; RESP 17; TEMP 97.2; O2SAT 100
[2024-12-24 20:00] VITALS: BP 138/78; PULSE 70; RESP 18; TEMP 97.8; O2SAT 98
[2024-12-25 08:05] VITALS: BP 124/76; PULSE 75; RESP 16; TEMP 97.6; O2SAT 98
[2024-12-25] MEDS ORDERED: LORazepam 2 MG/ML VIAL ONE (08:39)
[2024-12-25] MEDS ORDERED: DiphenhydrAMINE HCL 50 MG/ML VIAL ONE (08:39)
[2024-12-25] MEDS ORDERED: HALOPERIDOL LACTATE 5 MG/ML VIAL ONE (08:39)
[2024-12-25] MEDS: DiphenhydrAMINE HCL 50 MG/ML VIAL IM ONE ×2 (09:09→15:22)
[2024-12-25] MEDS: LORazepam 2 MG/ML VIAL IM ONE ×2 (09:09→15:22)
[2024-12-25] MEDS: HALOPERIDOL LACTATE 5 MG/ML VIAL IM ONE (09:10)
[2024-12-25] MEDS ORDERED: ChlorproMAZINE HCL 50 MG/2 ML AMP ONE (14:26)
[2024-12-25] MEDS: ChlorproMAZINE HCL 50 MG/2 ML AMP IM ONE (15:22)
[2024-12-25 20:10] VITALS: BP 128/88; PULSE 71; RESP 16; TEMP 97.5; O2SAT 98
[2024-12-26 08:20] VITALS: BP 103/65; RESP 16; TEMP 97.6; O2SAT 100
[2024-12-26] MEDS: IBUPROFEN 400 MG TABLET PO PRN (12:12)
[2024-12-26 13:12] VITALS: RESP 18
[2024-12-26 20:20] VITALS: BP 139/68; PULSE 96; RESP 16; TEMP 98.6; O2SAT 95
[2024-12-27 08:36] VITALS: BP 128/65; PULSE 100; RESP 17; TEMP 97.5; O2SAT 98
[2024-12-27 20:40] VITALS: BP 147/77; PULSE 98; RESP 17; TEMP 98.2; O2SAT 98
[2024-12-28 08:07] VITALS: BP 123/66; PULSE 86; RESP 16; TEMP 97.6; O2SAT 100
[2024-12-28] MEDS ORDERED: QUET100T PO (12:20)
[2024-12-28] MEDS ORDERED: QUET25TA PO (12:21)
== END 2024-12-28 13:15 | disposition home or self-care (01) | DRG 751 ==
LOC: EMS 11:09 → B3A 15:48 → EMS 16:41 → B3A 12-24 18:00
PROVIDERS: ADMIT Psychiatry & Neurology Child & Adolescent Psychiatry; ATTEND Psychiatry & Neurology Child & Adolescent Psychiatry
PROC: GZHZZZZ Group Psychotherapy (ICD-10-PCS; principal; 2024-12-21)
PROC: GZ56ZZZ Individual Psychotherapy, Supportive (ICD-10-PCS; 2024-12-21)
DX: F29 Unspecified psychosis not due to a substance or known physiological condition (principal); D69.6 Thrombocytopenia, unspecified; F20.0 Paranoid schizophrenia; Z20.822 Contact with and (suspected) exposure to COVID-19; I10 Essential (primary) hypertension; F19.10 Other psychoactive substance abuse, uncomplicated; D72.819 Decreased white blood cell count, unspecified; F12.90 Cannabis use, unspecified, uncomplicated; F15.90 Other stimulant use, unspecified, uncomplicated
CPT/HCPCS: 80048; 80061; 80307; 81001; 83036; 84443; 85025; G0480; J1200; J1630; J2060; J3230